=== PATIENT | female | born 1985 | race Two or more races ===

== ENCOUNTER 2024-08-11 09:37 | Emergency (ER) | payer MEDICAID, SELFPAY ==
[2024-08-11 09:38] VITALS: BMI 23.8
[2024-08-11 10:29] VITALS: BP 93/61; PULSE 58; RESP 18; TEMP 36.8; O2SAT 99; BMI 23.0
--- NOTE | 2024-08-11 10:34 | EDNOTE_ITS ---
ED Skin Abcess FB-RME/HPI General Chief complaint: Skin/Abscess/Foreign Body Stated complaint: BURN LEFT FOOT 4 DAYS AGO Time Seen by Provider: 08/11/24 10:31 Source: patient Arrival date/time: 08/11/24 09:37 39-year-old female no significant past medical history presents emergency department complaining of hot water burn to left second digit that occurred 4 days ago. Patient reports up-to-date with tetanus vaccine. Mode of arrival: ambulatory Limitations: no limitations Related Data Previous Rx's ?Medication ?Instructions ?Recorded ibuprofen 600 mg tablet 600 mg PO QID PRN fever or pain 07/15/19 #30 tabs sodium chloride 0.65 % nasal spray 2 spray intranasal QID #60 mL 07/15/19 aerosol (Saline Nasal) cephalexin 500 mg capsule 500 mg PO BID 5 days #10 caps 08/11/24 silver sulfadiazine 1 % topical 1 applic topical BID #20 grams 08/11/24 cream Allergies Allergy/AdvReac Type Severity Reaction Status Date / Time No Known Allergies Allergy Verified 08/11/24 09:40 Review of Systems Review of Systems Systems Reviewed: All systems reviewed, normal except as documented Constitutional Constitutional: Reports system reviewed and no additional complaints, except as documented, Denies body ache(s), Denies chills and Denies fever(s) Eyes Eyes: Reports system reviewed and no additional complaints, except as documented and Denies change in vision ENT Ears, Nose, Mouth, and Throat: Reports system reviewed and no additional complaints, except as documented, Denies disequilibrium, Denies dizziness, Denies sore throat and Denies vertigo Cardiovascular Cardiovascular: Reports system reviewed and no additional complaints, except as documented, Denies chest pain and Denies dyspnea Respiratory Respiratory: Reports system reviewed and no additional complaints, except as documented, Denies chest congestion, Denies cough and Denies dyspnea Gastrointestinal Gastrointestinal: Reports system reviewed and no additional complaints, except as documented, Denies abdominal pain, Denies nausea and Denies vomiting Musculoskeletal Musculoskeletal: Reports system reviewed and no additional complaints, except as documented, Denies abnormal gait and Denies arthralgias Integumentary/Breasts Skin/Breast: Reports system reviewed and no additional complaints, except as documented, Denies erythema, Denies rash and Reports wounds Neurologic Neurologic: Reports system reviewed and no additional complaints, except as documented, Denies abnormal gait, Denies disequilibrium, Denies dizziness and Denies vertigo Past Medical History Past Medical History CARDIAC: Negative Congestive Heart Failure RESPIRATORY: Positive Asthma; Negative Chronic Obstructive Pulmonary Disease (COPD) GENITOURINARY: Negative Renal Disease ENDOCRINE: Negative Diabetes Mellitus Type 1 or Diabetes Mellitus Type 2 OTHER HISTORY: Negative Blood Transfusions Family History FAMILY HISTORY: Negative Family Neurologic Problems, Family Psychiatric Problems, Family Respiratory Disorders, Family Cardiac Disorders, Family Gastrointestinal Problems, Family Cancer, Family Surgery or Family Anesthesia Reaction Surgical History SURGICAL: Positive Tubal Ligation Social History SMOKING STATUS: Never smoker SUBSTANCE USE: does not use ED Exam General Limitations: Present no limitations General appearance: Present alert and in no apparent distress Head Head exam: Present atraumatic Eye Eye exam: Present normal appearance, PERRL and EOMI ENT ENT exam: Present normal exam, normal oropharynx and mucous membranes moist Neck Neck exam: Present normal inspection, full ROM and trachea midline Chest Chest inspection: Present normal inspection and symmetric chest wall rise Respiratory Respiratory exam: Present normal lung sounds bilaterally Cardiovascular Cardiovascular exam: Present regular rate, normal rhythm and normal heart sounds Abdominal Exam Abdominal exam: Present soft and normal bowel sounds Extremities Exam Extremities exam: Present normal inspection and full ROM Expanded Lower Extremity Exam Top foot image: 2 1. Small area of redness healing burn that is not circumferential and affected toe is neurovascularly intact. Back Exam Back exam: Present normal inspection and full ROM Neurological Exam Neurological exam: Present alert, oriented X3 and CN II-XII intact Psychiatric Psychiatric exam: Present normal affect and normal mood Skin Skin exam: Present warm and dry Course Quality Measures none Orders Category Date Time Status Silver Sulfadiazine Cr 1% 25Gm [Silvadene Cr] Med 08/11/24 10:33 Once See Dose Instructions TOP X1 ONE Vital Signs Vital signs: Vital Signs Temperature 98.3 F 08/11/24 10:29 Pulse Rate 58 L 08/11/24 10:29 Respiratory Rate 18 08/11/24 10:29 Blood Pressure 93/61 08/11/24 10:29 Pulse Oximetry (%) 99 08/11/24 10:29 Oxygen Delivery Method Room Air 08/11/24 10:29 99% room air within normal limits Skin / Abscess / Foreign Body MDM Narrative MDM Narrative:: 39-year-old female no significant past medical history presents emergency department complaining of hot water burn to left second digit that occurred 4 days ago. Patient reports up-to-date with tetanus vaccine. Affected toe neurovascularly intact. Small healing second-degree burn that is not circumferential that affects dorsal part of second toe. No signs of infection noted. Dressing applied with silver sulfadiazine and discharged on oral antibiotics for infection prevention. Instructed to have follow-up with primary care provider return to emergency department for any worsening symptoms or as needed. Patient data External records reviewed:: [facility] previous records Clinical information provided by:: patient Social determinants that could affect healthcare access:: none Patient has the following chronic illnesses:: None How is presenting disease/condition affected by chronic disease/condition?: no chronic disease Evaluation data The following diagnostics were reviewed and interpreted by me:: other (specify) (Not applicable) Lab and/or radiology exams considered but not ordered:: Not applicable Interpretation Summary: Not applicable Medications / Prescriptions Medications or Prescriptions considered but not ordered:: Ordered Medication administrations:: Applied Consultations Consultation(s) initiated? (list below): No Diagnosis Skin/Abscess Differential Diagnosis: abscess of skin or subcutaneous tissue, urticaria, cellulitis, eczema and contact dermatitis Most likely diagnosis given after review of the tests above:: Second-degree burn of left foot initial encounter Admission Indicated Admission indicated?: not indicated Admission Request Was there a request for admission?: No Disposition Plan Disposition Plan: Discharge Discharge Attestation Discharge Attestation: The patient and all family members were given an opportunity to ask questions and understood the discharge instructions. Discharge instructions specifically effects, indications for sooner follow up or return to the emergency department, and the expected course of current diagnosis. Patient condition: Stable Discharge Plan Plan Patient Disposition: HOME (Self Care) Disposition Comment: Stable Prescriptions/Referrals Prescriptions/Med Rec: New cephalexin 500 mg capsule 500 mg PO BID 5 Days Qty: 10 0RF silver sulfadiazine 1 % cream 1 applic topical BID Qty: 20 0RF Rx Instructions: apply a 1.5 mm thickness No Action sodium chloride [Saline Nasal] 0.65 % aerosol,spray 2 spray INTRANASAL QID Qty: 60 0RF ibuprofen 600 mg tablet 600 mg PO QID PRN (Reason: fever or pain) Qty: 30 0RF Problem List Clinical Impression: Burn of second degree of left foot, initial encounter Patient/Caregiver Discharge Instructions Discharge Activity: activity as tolerated Education Materials: ED Burn, Hot Water, ED Burn, Second-Degree Additional Instructions: Dressing changes and application of silver sulfadiazine as instructed. Take antibiotics as prescribed. Follow-up with primary care provider in 2 to 3 days. Return to emergency department for any worsening symptoms or as needed. Print Language: [place] Stand Alone Forms: Yessenia Award Info., Patient Portal Info Letter PA/SALESPERSON NECKTIES Supervising Physician PA/SALESPERSON NECKTIES Supervising Physician: Dr. More
[2024-08-11] MEDS: SILVER SULFADIAZINE CR 1% 25 GM TUBE TOP (10:58)
== END 2024-08-11 11:09 | disposition home or self-care (01) ==
LOC: SERX 11:08
PROVIDERS: Emergency Provider Emergency Medicine; PCP Family Medicine
DX: T25.232A Burn of second degree of left toe(s) (nail), initial encounter (principal); T31.0 Burns involving less than 10% of body surface; X11.8XXA Contact with other hot tap-water, initial encounter
CPT/HCPCS: 99282; A9270

== ENCOUNTER 2025-02-20 00:15 | Emergency (ER) | payer MEDICAID, SELFPAY ==
[2025-02-20 00:16] VITALS: BMI 24.5
[2025-02-20 00:33] VITALS: BP 103/60; PULSE 88; RESP 18; TEMP 37.4; O2SAT 99
--- NOTE | 2025-02-20 01:09 | EDNOTE_ITS ---
Upper Respiratory Inf. RME/HPI General Chief Complaint: Flu Like Symptoms Stated Complaint: SINUS PAIN AND CONGESTION Time Seen by Provider: 02/20/25 00:47 Arrival date/time: 02/20/25 00:15 39F with history of asthma presents to ED with 2 days of cough, body aches, and some nasal congestion/pain. Limitations: no limitations Related Data Previous Rx's ?Medication ?Instructions ?Recorded ibuprofen 600 mg tablet 600 mg PO QID PRN fever or p ain 07/15/19 #30 tabs sodium chloride 0.65 % nasal spray 2 spray intranasal QID #60 mL 07/15/19 aerosol (Saline Nasal) silver sulfadiazine 1 % topical 1 applic topical BID # 20 grams 08/11/24 cream Allergies Allergy/AdvReac Type Severity Reaction Status Date / Time No Known Allergies Allergy Verified 02/20/25 00:20 Review of Systems Review of Systems Systems Reviewed: All systems reviewed, normal except as documented Constitutional Constitutional: Reports system reviewed and no additional complaints, except as documented, Reports as per HPI, Reports body ache(s), Reports chills, Reports f ever(s) and Denies headache(s) ENT Ears, Nose, Mouth, and Throat: Reports as per HPI, Denies disequilibrium, Denies headache(s), Reports nasal congestion, Reports nasal discharge and Reports sinus pain Cardiovascular Cardiovascular: Reports system reviewed and no additional complaints, except as documented, Denies chest pain and Denies dyspnea Respiratory Respiratory: Reports system reviewed and no additional complaints, except as documented, Reports as per HPI, Reports cough and Denies dyspnea Gastrointestinal Gastrointestinal: Reports system reviewed and no additional complaints, except as documented, Denies abdominal pain, Denies nausea and Denies vomiting Neurologic Neurologic: Reports system reviewed and no additional complaints, except as documented, Denies confusion, Denies disequilibrium and Denies headache(s) Psychiatric Psychiatric: Denies confusion Past Medical History Past Medical History CARDIAC: Negative Congestive Heart Failure RESPIRATORY: Positive Asthma; Negative Chronic Obstructive Pulmonary Disease (COPD) GENITOURINARY: Negative Renal Disease ENDOCRINE: Negative Diabetes Mellitus Type 1 or Diabetes Mellitus Type 2 OTHER HISTORY: Negative Blood Transfusions Family History FAMILY HISTORY: Negative Family Neurologic Problems, Family Psychiatric Problems, Family Respiratory Disorders, Family Cardiac Disorders, Family Gastrointestinal Problems, Family Cancer, Family Surgery or Family Anesthesia Reaction Surgical History SURGICAL: Positive Tubal Ligation Social History SMOKING STATUS: Never smoker SUBSTANCE USE: does not use ED Exam General Limitations: Present no limitations General appearance: Present alert and in no apparent distress Head Head exam: Present atraumatic Eye Eye exam: Present normal appearance, PERRL and EOMI ENT ENT exam: Present normal oropharynx and mucous membranes moist Expanded ENT Exam Nose exam: Present sinus tenderness Neck Neck exam: Present normal inspection, full ROM and trachea midline Chest Chest inspection: Present normal inspection and symmetric chest wall rise Respiratory Respiratory exam: Present normal lung sounds bilaterally Cardiovascular Cardiovascular exam: Present regular rate, normal rhythm and normal heart sounds Abdominal Exam Abdominal exam: Present soft and normal bowel sounds Extremities Exam Extremities exam: Present normal inspection and full ROM Back Exam Back exam: Present normal inspection and full ROM Neurological Exam Neurological exam: Present alert, oriented X3 and CN II-XII intact Psychiatric Psychiatric exam: Present normal affect and normal mood Skin Skin exam: Present warm, dry, intact and normal color Course Quality Measures none Orders Category Date Time Status Bedside COVID-19 Antigen Test NOW Care 02/20/25 00:47 Active Bedside Influenza A&B Antigen Test NOW Care 02/20/25 00:47 Active Dexamethasone Inj [Decadron Inj] Med 02/20/25 01:07 Once 10 mg PO X1 ONE Vital Signs Vital signs: Vital Signs Temperature 99.3 F 02/20/25 00:33 Pulse Rate 88 02/20/25 00:33 Respiratory Rate 18 02/20/25 00:33 Blood Pressure 103/60 02/20/25 00:33 Pulse Oximetry (%) 99 02/20/25 00:33 Oxygen Delivery Method Room Air 02/20/25 00:33 O2 at 99% on RA and WNLs Upper Respiratory Infection MDM Narrative MDM Narrative:: 39F with history of asthma presents to ED with 2 days of cough, body aches, and some nasal congestion/pain. Physical exam reveal some sinus tenderness. Clear lungs. Normal WOB. Patient is afebrile, calm, and alert. COVID+. Patient data External records reviewed:: [facility] previous records Clinical information provided by:: patient Social determinants that could affect healthcare access:: none Patient has the following chronic illnesses:: asthma How is presenting disease/condition affected by chronic disease/condition?: exacerbated by Evaluation data The following diagnostics were reviewed and interpreted by me:: lab results Lab and/or radiology exams considered but not ordered:: ordered Interpretation Summary: above Medications / Prescriptions Medications or Prescriptions considered but not ordered:: ordered Medication administrations:: Medication Administration History Dexamethasone Sodium Phosphate (Dexamethasone Sod Phos Inj 10 Mg/Ml Vial) 10 mg PO X1 ONE Stop: 02/20/25 01:08 above Consultations Consultation(s) initiated? (list below): No Diagnosis Upper Respiratory Differential Diagnosis: upper respiratory infection, croup, otitis media, sinusitis, viral infection, bronchitis, influenza and pharyngitis Most likely diagnosis given after review of the tests above:: COVID Admission Indicated Admission indicated?: not indicated Admission Request Was there a request for admission?: No Disposition Plan Disposition Plan: Discharge Discharge Attestation Discharge Attestation: The patient and all family members were given an opportunity to ask questions and understood the discharge instructions. Discharge instructions specifically effects, indications for sooner follow up or return to the emergency department, and the expected course of current diagnosis. Patient condition: Stable Discharge Plan Plan Patient Disposition: HOME (Self Care) Discharge Disposition comment: Stable Prescriptions/Referrals Prescriptions/Med Rec: No Action sodium chloride [Saline Nasal] 0.65 % aerosol,spray 2 spray INTRANASAL QID Qty: 60 0RF ibuprofen 600 mg tablet 600 mg PO QID PRN (Reason: fever or pain) Qty: 30 0RF silver sulfadiazine 1 % cream 1 applic topical BID Qty: 20 0RF Rx Instructions: apply a 1.5 mm thickness Problem List Clinical Impression: COVID-19 Patient/Caregiver Discharge Instructions Education Materials: Caring for Someone Who Has COVID-19 Additional Instructions: Please follow-up with PCP within 24-48 hours and return immediately if symptoms worsen. Ibuprofen/Tylenol can be used simultaneously for greater fever/pain control. Benadryl is good for cough, congestion, and sleep. Print Language: Citizen Of [place] Stand Alone Forms: Patient Portal Info Letter PA/INTERNET ASSESSOR Supervising Physician PA/INTERNET ASSESSOR Supervising Physician: Dr. Remy
[2025-02-20] MEDS: DEXAMETHASONE SOD PHOS INJ 10 MG/ML VIAL PO (01:32)
== END 2025-02-20 01:34 | disposition home or self-care (01) ==
LOC: SERX 05:15
PROVIDERS: Emergency Provider Emergency Medicine; PCP Family Medicine
DX: U07.1 COVID-19 (principal)
CPT/HCPCS: 96372; 99283; J1100

== ENCOUNTER 2025-05-18 19:15 | Emergency (ER) | payer MEDICAID, SELFPAY ==
[2025-05-18 19:16] VITALS: BMI 23.8
[2025-05-18 19:34] VITALS: BP 104/59; PULSE 74; RESP 20; TEMP 37.3; O2SAT 99
--- NOTE | 2025-05-18 19:34 | EDNOTE_ITS ---
ED General RME/HPI General Chief complaint: Nausea/Vomiting/Diarrhea Stated complaint: VOMITING Time Seen by Provider: 05/18/25 19:20 Arrival date/time: 05/18/25 19:15 RME / HPI RME / HPI narrative: Filomena is a 40 y/o female with no pertinent past medical history comes in for an evaluation of nausea and vomiting in addition to abdominal pain and headache. Patient reports that she never had these kind of symptoms before and has been worsening. She says she had 3 episodes of vomiting that was described as green- yellow. Said that her headache has been worse. 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 She also says she took Tylenol for it and did not help much. Says no one else around her is feeling at this. She denies any recent travel. She has never had a . She has gotten hernia repair surgery and a tonsillectomy. She denies taking any ibuprofen. No other complaints this time. Her bowel movements are usually normal, however today she had some diarrhea. Related Data Previous Rx's ?Medication ?Instructions ?Recorded ibuprofen 600 mg tablet 600 mg PO QID PRN fever or p ain 07/15/19 #30 tabs sodium chloride 0.65 % nasal spray 2 spray intranasal QID #60 mL 07/15/19 aerosol (Saline Nasal) silver sulfadiazine 1 % topical 1 applic topical BID # 20 grams 08/11/24 cream hydrocodone 5 mg-acetaminophen 325 1 tab PO Q8H PRN pa in 3 days #10 05/19/25 mg tablet tabs Allergies Allergy/AdvReac Type Severity Reaction Status Date / Time No Known Allergies Allergy Verified 05/18/25 19:16 Review of Systems Review of Systems Narrative Review of Systems: 12 point ROS reviewed and is otherwise negative unless stated directly in the HPI ED Exam Narrative Physical exam: General: AAOx3, in mild distress HEENT: Dry mucous membranes, conjunctiva clear, EOMI, PERRLA, Cardiovascular: S1, S2, radial pulses +2 bilat, RRR Pulmonary: CTAB bilat no cough, no wheezing GI: No tenderness to light or deep palpitation, no guarding, rigidity, rebound tenderness or distension Extremities: No presence of trace or pitting edema in lower extremities bilaterally, dorsalis pedis pulses +2 bilaterally Neuro: AAOx3, no focal motor or sensory deficits in the UE or LE bilat Psych: Good judgement, thought and behavior Course Quality Measures none Orders Category Date Time Status Insert IV NOW Care 05/18/25 19:[address] head/brain wo con Stat Exams 05/19/25 00:02 Taken US abdomen Stat Exams 05/18/25 19:49 Taken CBC Stat Lab 05/18/25 20:05 Completed CMP [Comprehensive Metabolic Panel] Stat Lab 05/18/25 20:05 Completed HCG Qualitative,Urine Stat Lab 05/18/25 20:17 Completed Lipase Stat Lab 05/18/25 20:05 Completed Mag [Magnesium] Stat Lab 05/18/25 20:05 Completed Phosphorous Stat Lab 05/18/25 20:05 Completed Urinalysis, C/S if Indicated Stat Lab 05/18/25 20:17 Completed Acetaminophen Tab [Tylenol Tab] Med 05/19/25 00:02 Discontinued 650 mg PO X1 ONE Metoclopramide Inj [Reglan Inj] Med 05/18/25 19:47 Discontinued 10 mg IVP X1 ONE Ondansetron Inj [Zofran Inj] Med 05/19/25 00:02 Discontinued 4 mg IVP X1 ONE Ondansetron Odt [Zofran Odt] Med 05/18/25 19:47 Discontinued 4 mg PO X1 ONE Pantoprazole Inj [Protonix Inj] Med 05/18/25 19:47 Discontinued 40 mg IVP X1 ONE Sodium Chloride 0.9% 1000 ml [Ns] 1,000 ml Med 05/18/25 19:47 Discontinued IV 999 mls/hr Sodium Chloride 0.9% 1000 ml [Ns] 1,000 ml Med 05/19/25 00:02 Discontinued IV 999 mls/hr Sodium Chloride 0.9% 1000 ml [Ns] 1,000 ml Med 05/19/25 04:59 Active IV 999 mls/hr Sodium Chloride 0.9% 500 ml [Ns] 500 ml Med 05/19/25 04:47 Discontinued IV 999 mls/hr Vital Signs Vital signs: Vital Signs Temperature 99.2 F 05/18/25 19:34 Pulse Rate 74 05/18/25 19:34 Respiratory Rate 20 05/18/25 19:34 Blood Pressure 104/59 L 05/18/25 19:34 Pulse Oximetry (%) 99 05/18/25 19:34 Oxygen Delivery Method Room Air 05/18/25 19:34 Discharge Plan Plan Patient Disposition: HOME (Self Care) Patient condition on transfer: Stable Prescriptions/Referrals Prescriptions/Med Rec: New hydrocodone-acetaminophen 5-325 mg tablet 1 tab PO Q8H MDD 3 PRN (Reason: pain) 3 Days Qty: 10 0RF Rx Instructions: Take one tablet by mouth up to every eight hours as needed for severe pain No Action sodium chloride [Saline Nasal] 0.65 % aerosol,spray 2 spray INTRANASAL QID Qty: 60 0RF ibuprofen 600 mg tablet 600 mg PO QID PRN (Reason: fever or pain) Qty: 30 0RF silver sulfadiazine 1 % cream 1 applic topical BID Qty: 20 0RF Rx Instructions: apply a 1.5 mm thickness Referrals: Jeet Patel MD [Primary Care Provider, Family Practice] - In 1 week Problem List Clinical Impression: Biliary colic Patient/Caregiver Discharge Instructions Discharge Activity: activity as tolerated Additional Instructions: Discharge Instructions from Dr. Remy: 1. After evaluation, your symptoms are due to gallstone(s).? You need gallbladder to help digest fatty foods. 2. So to prevent future attacks, avoid all fatty and oily and greasy and buttery and dairy foods.? This usually means take out and fast food restaurants. 3. Zofran for nausea/vomiting.? Tylenol with codeine for severe pain.? Clear liquid diet for 24 hours then advance diet slowly as tolerated. 4. See a private doctor on 01/21/2025 for recheck and further care. Ask to review all test results and official radiology reports, to make sure you receive all necessary follow-ups and monitoring. Ask for help seeing a general surgeon to discuss elective surgery. 5. Seek immediate medical care with intolerable pain, fever, or with any concerns. Print Language: [place] Stand Alone Forms: Yessenia Award Info., Patient Portal Info Letter MDM Narrative MDM hospital course (for use when minimal MDM required): 1947: Will order basic labs, initiate IV bolus, give IV Reglan, and also order ultrasound of abdomen. 0003: Headache continuing, will order head CT, give Tylenol, additional 1 L bolus, and Zofran for nausea. Pending ultrasound read from [facility]. 0453: [facility] Report shows cholelithiasis but no cholecystitis, also shows possible steatohepatitis. Will give additional 1 L bolus as patient's blood pressure is a bit low. Head CT negative for acute infarct, hemorrhage or midline shift. 0518: Patient medically cleared for discharge at this time. Gave patient strict ER precautions on returning if pain returns. Patient will need PCP referral to general surgery for further evaluation of cholelithiasis. Also informed patient about liver findings of ultrasound showing steatohepatitis. Instructed patient in regards to primary lifestyle intervention as well. Medication Administration(s) Medication Administration History Sodium Chloride (Ns) 1,000 mls @ 999 mls/hr IV .Q1H1M ONE Stop: 05/19/25 05:59 Last Admin: 05/19/25 05:00 Dose: 999 mls/hr Documented By: MONIE Discontinued Medications Acetaminophen (Acetaminophen 325 Mg Tablet) 650 mg PO X1 ONE Stop: 05/19/25 00:03 Last Admin: 05/19/25 00:31 Dose: 650 mg Documented By: JESUS Sodium Chloride (Ns) 1,000 mls @ 999 mls/hr IV .Q1H1M ONE Stop: 05/18/25 20:47 Last Infusion: 05/18/25 22:46 Dose: Infused Documented By: Admin: 05/18/25 21:09 Dose: 999 mls/hr Documented By: MONIE Sodium Chloride (Ns) 1,000 mls @ 999 mls/hr IV .Q1H1M ONE Stop: 05/19/25 01:02 Last Infusion: 05/19/25 02:37 Dose: Infused Documented By: Admin: 05/19/25 00:31 Dose: 999 mls/hr Documented By: JESUS Sodium Chloride (Ns) 500 mls @ 999 mls/hr IV .Q31M ONE Stop: 05/19/25 05:17 Last Admin: 05/19/25 05:01 Dose: Not Given Documented By: MONIE Non-Admin Reason: Cancelled by Provider Metoclopramide HCl (Metoclopramide Inj 5 Mg/Ml Vial 2 Ml) 10 mg IVP X1 ONE; Protocol Stop: 05/18/25 19:48 Last Admin: 05/18/25 21:08 Dose: 10 mg Documented By: MONIE Ondansetron HCl (Ondansetron Odt 4 Mg Tabrap) 4 mg PO X1 ONE; Protocol Stop: 05/18/25 19:48 Last Admin: 05/18/25 21:08 Dose: 4 mg Documented By: MONIE Ondansetron HCl (Ondansetron Inj 2 Mg/Ml Inj 2 Ml) 4 mg IVP X1 ONE; Protocol Stop: 05/19/25 00:03 Last Admin: 05/19/25 00:31 Dose: 4 mg Documented By: JESUS Pantoprazole Sodium (Pantoprazole Inj 40 Mg Vial) 40 mg IVP X1 ONE Stop: 05/18/25 19:48 Last Admin: 05/18/25 21:08 Dose: 40 mg Documented By: MONIE Diagnosis Diagnoses ruled out and/or further discussions: Cholecystitis, pancreatitis, gastroenteritis, diverticulitis
--- NOTE | 2025-05-18 19:49 | XR_ITS ---
Examination: Abdomen sonogram, complete Date and time of exam: May 18, 2025, 1051 hrs. Indications: Epigastric pain today. Technique: Multiple real-time grayscale transabdominal sonographic images of the abdomen have been obtained. Findings: Multiple gallstones Gallbladder wall does not appear thickened, 0.18 cm Common bile duct 0.35 cm Aorta not enlarged Mild hepatomegaly 16.80 cm no liver lesions Patent IVC, patent hepatic veins Right kidney visualized no hydronephrosis or renal calculi, left kidney visualized no hydronephrosis or renal calculi, right kidney 10.3 cm left kidney 10.5 cm Normal hepatopedal portal venous flow Impression: Cholelithiasis, negative for cholecystitis Mild hepatomegaly
[2025-05-18 20:12] LABS: Basophils # (Auto) 0.0 Thou/mm3 (0.0-0.2); Basophils % (Auto) 0 % (0-2.5); Eosinophils # (Auto) 0.1 Thou/mm3 (0.0-0.5); Eosinophils % (Auto) 1 % (0-10); Hematocrit 39.2 % (36.0-46.0); Hemoglobin 12.8 g/dL (12.0-16.0); Immature Granulocytes Auto 0.04 Thou/mm3 (0.00-0.00); Lymphocytes # (Auto) 2.8 Thou/mm3 (1.0-4.8); Lymphocytes % (Auto) 29 % (10-50); Mean Corpuscular HGB Conc 32.7 g/dl (31.0-37.0); Mean Corpuscular Hemoglobin 29.0 pg (25.0-35.0); Mean Corpuscular Volume 89 fL (80-100); Monocytes # (Auto) 0.5 Thou/mm3 (0.0-0.8); Monocytes % (Auto) 6 % (0-12); Neutrophils # (Auto) 6.1 Thou/mm3 (1.8-7.7); Neutrophils % (Auto) 64 % (37-80); Nucleated Red Blood Cell # 0.00 Thou/mm3 (0.00-0.00); Nucleated Red Blood Cell % 0 /100 WBC (0); Platelet Count 267 Thou/mm3 (140-440); RDW Standard Deviation 39.3 fL (36.4-46.3); Red Blood Count 4.42 Miln/mm3 (4.00-5.20); White Blood Count 9.6 Thou/mm3 (3.6-11.0)
[2025-05-18 20:23] LABS: Collection Type, Urine Catheter
[2025-05-18 20:28] LABS: HCG Qualitative,Urine Negative
[2025-05-18 20:33] LABS: Bacteria,Urine Rare; Bilirubin,Urine Negative (Negative); Blood,Urine Negative (Negative); Clarity,Urine Clear (Clear/Hazy); Color,Urine Yellow (Lt Yel-Yel); Culture Indicated,Urine Not Indicated; Glucose, Urine Negative (Negative); Ketones,Urine Negative (Negative); Leukocyte Esterase,Urine Positive (Negative); Nitrite,Urine Negative (Negative); PH,Urine 6.0 (5.0-7.0); Protein,Urine Trace (Neg - Trace); RBC,Urine 6 /hpf (0-3); Specific Gravity,Urine 1.030 (1.001-1.035); Squamous Epithelial Cell,Urine 3 /hpf (0-5); Urobilinogen,Urine Negative mg/dL (0.0-1.0); WBC,Urine 1 /hpf (0-5)
[2025-05-18 20:33] LABS: Alanine Aminotransferase 35 U/L (10-49); Albumin, Serum 5.0 gm/dL (3.5-5.0); Albumin/Globulin Ratio 1.9 (1.2-2.2); Alkaline Phosphatase 82 U/L (46-116); Anion Gap 9 (7-16); Aspartate Amino Transferase 27 U/L (0-34); BUN/Creatinine Ratio 13 Ratio (12-20); Bilirubin,Total 0.3 mg/dL (0.3-1.2); Blood Urea Nitrogen 8 mg/dL (9-23); Calcium 10.0 mg/dL (8.3-10.6); Calcium (Corrected) 10.0 mg/dL (8.5-10.1); Carbon Dioxide 29.8 mMol/L (20.0-31.0); Chloride 104 mMol/L (98-107); Creatinine (Component) 0.6 mg/dL (0.6-1.3); Estimated Creatinine Clearance 97.6 mL/min (>60); Globulin 2.7 gm/dL (2.3-3.5); Glucose 109 mg/dL (74-106); Lipase 27 U/L (12-53); Magnesium 2.1 mg/dL (1.6-2.6); Osmolality,Calculated 284 (275-295); Phosphorous 3.3 mg/dL (2.4-5.1); Potassium 4.2 mMol/L (3.4-5.1); Sodium 143 mMol/L (136-145); Total Protein 7.7 gm/dL (5.7-8.2); eGFR > 60 See Note
[2025-05-18] MEDS: METOCLOPRAMIDE INJ 5 MG/ML VIAL 2 ML 10 MG IVP (21:08)
[2025-05-18] MEDS: ONDANSETRON ODT 4 MG TABRAP PO (21:08)
[2025-05-18] MEDS: SODIUM CHLORIDE 0.9% 1000 ML 1,000 ML 999 ML IV (21:09)
[2025-05-18 22:22] VITALS: BP 93/51; PULSE 70; RESP 18; TEMP 36.7; O2SAT 100
[2025-05-18 22:57] VITALS: BP 98/60; PULSE 60; RESP 14; O2SAT 100
--- NOTE | 2025-05-19 00:02 | XR_ITS ---
Examination: CT brain head without contrast. 2-D sagittal coronal reconstructions Date and time of exam:May 19, 2025, 12:24 AM Indications: Onset headache today CTDI: vol (mGy):42.80 DLP: (mGycm):803 Technique: Multiple CT axial sections of the brain have been obtained, 5 mm slice thickness. Contrast has not been administered. 2-D sagittal, coronal reconstructions have been obtained Low dose protocols were performed. One or more of the following dose reduction techniques were used; automated exposure control, adjustment of the mA and/or KV according to patient size, use of iterative reconstruction technique. Findings: No significant ventricular enlargement. Intra-axial or extra-axial hemorrhage density is not seen. No mass effect or midline shift Basal cisterns are not remarkable. Fourth ventricle is midline. Cranial vault intact. Impression: Negative for acute hemorrhage, mass effect or midline shift Advise clinical correlation follow-up accordingly
[2025-05-19] MEDS: SODIUM CHLORIDE 0.9% 1000 ML 1,000 ML 999 ML IV ×2 (00:31→05:00)
[2025-05-19] MEDS: ONDANSETRON INJ 2 MG/ML INJ 2 ML 4 MG IVP (00:31)
[2025-05-19] MEDS: ACETAMINOPHEN 325 MG TABLET 650 MG PO (00:31)
[2025-05-19 00:38] VITALS: BP 94/64; PULSE 66; RESP 18; TEMP 36.6; O2SAT 98
--- NOTE | 2025-05-19 01:20 | PRELIM_ITS ---
CT scan of the head without intravenous contrast (axial sections with sagittal and coronal reformats). May 19, 2025 0024 hours Clinical History: Headache. No prior study is available for comparison. 66s Findings: No evidence of intracranial hemorrhage, mass effect or midline shift. The ventricles and CSF spaces are unremarkable. The calvarium is unremarkable. The mastoid air cells and the visualized paranasal sinuses are clear. Impression: No evidence of intracranial hemorrhage, mass effect or midline shift. Report Electronically Signed By: Angel Hawkins 05/19/2025 1:20:14 AM [EST]
[2025-05-19 02:11] VITALS: BP 102/68; PULSE 60; RESP 17; TEMP 36.6; O2SAT 99
--- NOTE | 2025-05-19 04:19 | PRELIM_ITS ---
Ultrasound Abdomen with Doppler and wave Doppler spectral analysis. May 18, 2025 2251 hours Clinical history: Abdominal pain. Technique: Grayscale and color flow images of the abdomen are provided. Hepatic and portal veins were also imaged with color flow images. Comparison: None available at the time of this report. Findings: The liver is enlarged and demonstrates increased echogenicity. No intrahepatic biliary ductal dilatation. Gallstones. No gallbladder wall thickening or pericholecystic fluid is demonstrated. The common bile duct is normal in caliber at 3.5 mm. No free fluid is demonstrated on the submitted images. The pancreas is unremarkable to the extent visualized. The right kidney measures 10.3 cm. The left kidney measures 10.5 cm. There is no hydronephrosis and the corticomedullary differentiation is maintained. The spleen is normal measuring 10.9 cm in length. The abdominal aorta and inferior vena cava to the extent visualized are within normal limits. The portal vein is patent with appropriate flow and normal wave Doppler spectral analysis. The hepatic veins are patent with normal wave Doppler spectral analysis. García sign is not available at the time of this report. Impression: Hepatomegaly associated with liver steatosis, suspicious for steatohepatitis. Gallstones without evidence of acute cholecystitis. Report Electronically Signed By: Kleber Bryson 05/19/2025 4:18:17 AM [EST]
[2025-05-19 04:26] VITALS: BP 100/54; PULSE 62; RESP 17; TEMP 36.6; O2SAT 96
[2025-05-19 05:12] VITALS: BP 95/64; PULSE 58; RESP 16; TEMP 36.7; O2SAT 99
[2025-05-19 06:07] VITALS: BP 95/66; PULSE 60; RESP 16; TEMP 36.8; O2SAT 99
== END 2025-05-19 06:08 | disposition home or self-care (01) ==
PROVIDERS: Emergency Provider Emergency Medicine; PCP Family Medicine
DX: K80.20 Calculus of gallbladder without cholecystitis without obstruction (principal); R51.9 Headache, unspecified
CPT/HCPCS: 36415; 70450; 76700; 80053; 81001; 81025; 83690; 83735; 84100; 85025; 96361; 96374; 96375; 99284; J2405; J2470; J2765; J7030; Q0162; A9270